=== PATIENT | male | born 1945 | race Caucasian/White ===

== ENCOUNTER → 2017-06-01 | Outpatient (CLI) | payer MEDICARE ==
[~2017-06-01] MED LIST: ADVA250A INH; ALBU6.7H INH; AZIT250T43 PO; HYDR-3533 PO; LAMI250T PO; PRED50 PO; SPIRCAP INH; TAB-TAB PO
[2017-06-01 07:54] LABS: BLOOD GAS BASE EXCESS 1.6 mmol/L (-2-2); BLOOD GAS CARBOXYHEMOGLOBIN 0.4 % (0-4); BLOOD GAS HCO3 25 mmol/L (22-26); BLOOD GAS METHEMOGLOBIN 0.8 % (0-2); BLOOD GAS O2 HGB SATURATION 94 % (90-100); BLOOD GAS OXYGEN CONTENT 21.9 Vol % (12.0-20.0); BLOOD GAS PCO2 38 mmHG (38-42); BLOOD GAS PO2 86 mmHG (61-120); BLOOD GAS TOTAL HGB 16.5 G/DL (12.0-16.0); CRITICAL VALUE NO; DRAW SITE RT RADIAL; FIO2 21 %; NUMBER OF ARTERIAL PUNCTURES 1; STAT NO; TEMP CORR TO 98.6; ULNAR PULSE PRESENT
--- NOTE | 2017-06-02 08:34 | RSPPFT ---
DATE OF PROCEDURE: 06/01/17 COMMENTS: Spirometry shows FVC of 4.0 at 90% of predicted, FEV1 of 1.6 at 48%, FEV1/FVC ratio is decreased. Flow is decreased at FEF 25, FEF 50, FEF 75 and FEF 25-75. There is a mild response after acutely inhaled bronchodilator treatment. Lung volumes show residual volume is increased. TLC is increased. Diffusion capacity is decreased. Flow volume loop indicates an obstructive pattern. Room air arterial blood gases show pH of 7.44, PCO2 of 38, PO2 of 86, BiCarb of 25 and O2 Saturation at 94%. IMPRESSION: 1. Moderately severe obstructive lung disease. 2. Mild response after bronchodilator treatment. 3. Lung volumes show hyperinflation and air trapping. 4. Moderate loss in diffusion capacity. 5. Blood gases show normal oxygenation on room air.
== END ==
LOC: PHRSP 07:30
PROVIDERS: ATTEND Specialist
DX: J44.9 Chronic obstructive pulmonary disease, unspecified (principal)
CPT/HCPCS: 36600; 82805; 94060; 94726; 94729